=== PATIENT | female | born 1980 | race Caucasian/White ===

== ENCOUNTER → 2017-08-06 | Outpatient (CLI) | payer OTHER | END | disposition home or self-care (01) | LOC: KCIC MRI 16:12 | DX: M50.322 Other cervical disc degeneration at C5-C6 level (principal); M47.892 Other spondylosis, cervical region; M25.78 Osteophyte, vertebrae; Q06.4 Hydromyelia; G89.29 Other chronic pain | CPT/HCPCS: 72141 ==